=== PATIENT | female | born 1985 | race Caucasian/White ===

== ENCOUNTER 2016-11-30 16:11 | Inpatient (IN) | payer OTHER ==
[~2016-11-30] VITALS: Ht 170.2 cm; Wt 72.8 kg
[~2016-11-30 16:11] MED LIST: FOLIC ACID1 MG PO; Motrin PO; SEROQUEL12.5 MG PO; SEROQUEL300 MG PO; VITAMIN B-1100 MG PO
[2016-11-30 16:48] LABS: HEMATOCRIT 38.4 % (36.0-46.0); MCH 32.8 PG (29.0-34.0); MCHC 32.8 G/DL (30.0-36.0); PLATELET COUNT 221 K/uL (156-360); RBC DIS.WIDTH-CV 17.9 % (11.8-14.6); RBC DIS.WIDTH-SD 63.6 % (39-53); RED BLOOD COUNT 3.84 M/uL (3.80-5.20); WHITE BLOOD COUNT 5.3 K/uL (4.1-10.2)
[2016-11-30 17:04] LABS: CHLORIDE 104 mEq/L (99-109); POTASSIUM 3.9 mEq/L (3.7-5.4); SODIUM 141 mEq/L (136-147)
[2016-11-30 17:06] LABS: GLUCOSE 90 mg/dL (70-99)
[2016-11-30 17:07] LABS: ANION GAP 17 MEQ/L (2-14)
[2016-11-30 17:10] LABS: GFR ESTIMATE (CALCULATED) > 59 mL/min/
[2016-11-30 17:11] LABS: UREA NITROGEN (BUN) 10 mg/dL (9-23)
[2016-11-30 17:19] LABS: QUANTITATIVE HCG < 4.0 MIU/ML
[2016-11-30 19:13] LABS: TOTAL BILIRUBIN 0.4 mg/dL (0.0-1.0)
[2016-11-30 19:14] LABS: ALKALINE PHOSPHATASE 177 IU/L (3-129)
[2016-11-30 19:17] LABS: DIRECT BILIRUBIN 0.2 mg/dL (0.0-0.3)
[2016-11-30 19:18] LABS: LIPASE 13 U/L (1.0-51.0)
[2016-11-30 20:21] LABS: INTER. NORMALIZED RATIO 1.1; PTT 27.1 (25-32)
[2016-11-30] MEDS ORDERED: SEROQUEL50 MG PO (22:31)
[2016-11-30] MEDS ORDERED: IRON325 M1 PO (22:32)
[2016-11-30] MEDS ORDERED: MOTRIN800 MG PO (22:32)
[2016-11-30] MEDS ORDERED: PAXIL20 MG PO (22:32)
[2016-11-30] MEDS ORDERED: NICODERM CQ1 EACH TD (22:32)
[2016-11-30] MEDS ORDERED: PROTONIX40 MG PO (22:32)
[2016-11-30 22:46] LABS: HEMATOCRIT 34.3 % (36.0-46.0); MCH 33.1 PG (29.0-34.0); MCHC 32.9 G/DL (30.0-36.0); MCV 100.6 FL (83-99); MEAN PLAT.VOLUME 8.4 uM^3 (9.5-12.4); PLATELET COUNT 201 K/uL (156-360); RBC DIS.WIDTH-SD 63.1 % (39-53); RED BLOOD COUNT 3.41 M/uL (3.80-5.20); WHITE BLOOD COUNT 4.2 K/uL (4.1-10.2)
[2016-12-01 00:05] LABS: ADD MIUA? NO; BILIRUBIN NEGATIVE; BLOOD NEGATIVE; COLOR YELLOW ((YELLOW)); GLUCOSE (STRIP) NEGATIVE; KETONES 5; LEUKOCYTES NEGATIVE; NITRITE NEGATIVE; PROTEIN (STRIP) NEGATIVE; SPECIFIC GRAVITY 1.038 (1.000-1.030); UROBILINOGEN 0.2 MG/DL (0.2-1.0)
[2016-12-01 01:28] VITALS: BP 109/67
[2016-12-01 02:42] LABS: HEMATOCRIT 30.5 % (36.0-46.0); MCV 100.3 FL (83-99)
[2016-12-01 04:11] VITALS: BP 103/64
[2016-12-01 08:27] VITALS: BP 123/83
[2016-12-01 10:25] LABS: POC NON-PRINT COM 1 ND
[2016-12-01 10:26] LABS: POC NON-PRINT COM 1 ND
[2016-12-01 10:44] LABS: HEMATOCRIT 33.7 % (36.0-46.0)
[2016-12-01 11:45] VITALS: BP 127/89
[2016-12-01 14:58] VITALS: BP 154/90
[2016-12-01 19:22] LABS: HEMATOCRIT 32.7 % (36.0-46.0); MCV 99.1 FL (83-99)
[2016-12-01 20:18] VITALS: BP 147/96
[2016-12-02] VITALS: BP 119/81
[2016-12-02 07:12] LABS: HEMATOCRIT 33.3 % (36.0-46.0); MCH 33.1 PG (29.0-34.0); MCHC 33.3 G/DL (30.0-36.0); MCV 99.4 FL (83-99); PLATELET COUNT 147 K/uL (156-360); RBC DIS.WIDTH-CV 16.9 % (11.8-14.6); RBC DIS.WIDTH-SD 61.3 % (39-53); RED BLOOD COUNT 3.35 M/uL (3.80-5.20); WHITE BLOOD COUNT 3.1 K/uL (4.1-10.2)
[2016-12-02 07:29] VITALS: BP 154/67
[2016-12-02 07:38] LABS: ANION GAP 9 MEQ/L (2-14); CHLORIDE 102 MEQ/L (99-109); GFR ESTIMATE (CALCULATED) > 59 mL/min/; GLUCOSE 100 mg/dL (70-99); POTASSIUM 3.3 MEQ/L (3.7-5.4); SAMPLE HEMOLYSIS CHECK 0; SAMPLE ICTERIC CHECK 0; SAMPLE LIPEMIA CHECK 0; SODIUM 136 MEQ/L (136-147); UREA NITROGEN (BUN) 4 mg/dL (9-23)
[2016-12-02 10:57] VITALS: BP 121/86
[2016-12-02 14:56] VITALS: BP 131/84
[2016-12-02 19:34] VITALS: BP 161/83
[2016-12-03] VITALS (7 sets, daily range): BP systolic 106–141; BP diastolic 76–100
[2016-12-03 06:54] LABS: HEMATOCRIT 35.4 % (36.0-46.0); MCH 32.8 PG (29.0-34.0); MCHC 32.2 G/DL (30.0-36.0); MCV 101.7 FL (83-99); PLATELET COUNT 150 K/uL (156-360); RBC DIS.WIDTH-CV 16.7 % (11.8-14.6); RBC DIS.WIDTH-SD 62.7 % (39-53); RED BLOOD COUNT 3.48 M/uL (3.80-5.20); WHITE BLOOD COUNT 3.4 K/uL (4.1-10.2)
[2016-12-03 07:24] LABS: ANION GAP 9 MEQ/L (2-14); CHLORIDE 105 MEQ/L (99-109); GFR ESTIMATE (CALCULATED) > 59 mL/min/; GLUCOSE 99 mg/dL (70-99); POTASSIUM 3.6 MEQ/L (3.7-5.4); SAMPLE HEMOLYSIS CHECK 0; SAMPLE ICTERIC CHECK 0; SAMPLE LIPEMIA CHECK 0; SODIUM 138 MEQ/L (136-147); UREA NITROGEN (BUN) 4 mg/dL (9-23)
[2016-12-04 03:47] VITALS: BP 121/76
[2016-12-04 06:31] LABS: HEMATOCRIT 34.1 % (36.0-46.0); MCH 32.1 PG (29.0-34.0); MCHC 31.4 G/DL (30.0-36.0); MCV 102.4 FL (83-99); MEAN PLAT.VOLUME 10.3 uM^3 (9.5-12.4); PLATELET COUNT 153 K/uL (156-360); RBC DIS.WIDTH-CV 16.9 % (11.8-14.6); RBC DIS.WIDTH-SD 63.7 % (39-53); RED BLOOD COUNT 3.33 M/uL (3.80-5.20); WHITE BLOOD COUNT 3.9 K/uL (4.1-10.2)
[2016-12-04 06:53] LABS: ALKALINE PHOSPHATASE 144 IU/L (3-129); ANION GAP 10 MEQ/L (2-14); CHLORIDE 104 MEQ/L (99-109); DIRECT BILIRUBIN 0.1 mg/dL (0.0-0.3); GFR ESTIMATE (CALCULATED) > 59 mL/min/; GLUCOSE 107 mg/dL (70-99); POTASSIUM 3.7 MEQ/L (3.7-5.4); SAMPLE HEMOLYSIS CHECK 0; SAMPLE ICTERIC CHECK 0; SAMPLE LIPEMIA CHECK 0; SODIUM 138 MEQ/L (136-147); TOTAL BILIRUBIN 0.4 MG/DL (0.0-1.0); UREA NITROGEN (BUN) 4 mg/dL (9-23)
[2016-12-04 07:23] VITALS: BP 104/65
[2016-12-04 11:05] VITALS: BP 109/61
[2016-12-04] MEDS ORDERED: LIBRIUM25 MG PO (11:27)
== END 2016-12-04 13:13 | disposition home or self-care (01) | DRG 897 ==
LOC: EME 16:11 → EDOF 23:23 → 5WEST 23:23 → 5SOUTH 12-01 10:27 → 5WEST 12-01 10:27 → 5SOUTH 12-01 14:30
PROVIDERS: Hospitalist; Nurse Practitioner Adult Health; Nurse Practitioner Family; Physician Assistant; Physician Assistant Medical
DX: F10.230 Alcohol dependence with withdrawal, uncomplicated (principal); K62.5 Hemorrhage of anus and rectum; D61.818 Other pancytopenia; E87.2 Acidosis; K70.9 Alcoholic liver disease, unspecified; R10.13 Epigastric pain; E87.6 Hypokalemia; E86.0 Dehydration; F32.9 Major depressive disorder, single episode, unspecified
CPT/HCPCS: 74177; 80048; 80076; 81003; 82272; 83605; 83690; 84702; 85014; 85018; 85027; 85610; 85730; 86850; 86900; 86901; 99281; 99285; C9113; G0378; J1170; J2060; J2270; J2405; J3360; J3411; J7030; J7050

== ENCOUNTER 2018-01-11 16:50 | Inpatient (IN) | payer OTHER ==
[~2018-01-11] VITALS: Ht 170.2 cm; Wt 58.9 kg
[~2018-01-11 16:50] MED LIST changes: +IRON325 M1 PO; +LIBRIUM25 MG PO; +MOTRIN800 MG PO; +NICODERM CQ1 EACH TD; +PAXIL20 MG PO; +PROTONIX40 MG PO; +SEROQUEL50 MG PO
[2018-01-11 18:10] LABS: HEMATOCRIT 25.1 % (36.0-46.0); HEMOGLOBIN 8.7 G/DL (11.9-15.5); MCHC 34.7 G/DL (30.0-36.0); MCV 106.8 FL (83-99); PLATELET COUNT 52 K/uL (156-360); RBC DIS.WIDTH-CV 14.5 % (11.8-14.6); RBC DIS.WIDTH-SD 55.7 % (39-53); RED BLOOD COUNT 2.35 M/uL (3.80-5.20); WHITE BLOOD COUNT 5.6 K/uL (4.1-10.2)
[2018-01-11 18:24] LABS: APPEARANCE SL.HAZY ((CLEAR)); BILIRUBIN NEGATIVE; BLOOD NEGATIVE; COLOR YELLOW ((YELLOW)); GLUCOSE (STRIP) NEGATIVE; KETONES NEGATIVE; LEUKOCYTES NEGATIVE; NITRITE NEGATIVE; PROTEIN (STRIP) NEGATIVE; SPECIFIC GRAVITY 1.008 (1.000-1.030)
[2018-01-11 18:24] LABS: ALBUMIN 3.9 g/dL (3.2-4.8); CHLORIDE 102 mEq/L (99-109); POTASSIUM 3.3 mEq/L (3.7-5.4); SODIUM 142 mEq/L (136-147)
[2018-01-11 18:26] LABS: GLUCOSE 90 mg/dL (70-99); TOTAL PROTEIN 8.7 g/dL (6.4-8.3)
[2018-01-11 18:28] LABS: TOTAL BILIRUBIN 4.9 mg/dL (0.0-1.0)
[2018-01-11 18:30] LABS: ALKALINE PHOSPHATASE 249 IU/L (3-129); CREATININE 0.7 mg/dL (0.6-1.3); GFR ESTIMATE (CALCULATED) > 59 mL/min/
[2018-01-11 18:31] LABS: UREA NITROGEN (BUN) 5 mg/dL (9-23)
[2018-01-11 18:32] LABS: BACTERIA RARE /HPF; EPITHELIAL CELLS 1+ /HPF; MUCUS NONE SEEN /LPF; RED BLOOD CELLS 0-5 /HPF (0-5); UCUL ADDED? NO; WHITE BLOOD CELLS 0-5 /HPF (0-5)
[2018-01-11 18:32] LABS: AST (GOT) 137 IU/L (2-34)
[2018-01-11 18:33] LABS: ALT (GPT) 28 IU/L (3-49)
[2018-01-11 18:40] LABS: QUANTITATIVE HCG < 4.0 MIU/ML
[2018-01-11 20:44] LABS: LIPASE 2 U/L (1.0-51.0)
[2018-01-11 22:26] LABS: INTER. NORMALIZED RATIO 1.6
[2018-01-11 22:28] LABS: PTT 38.9 SEC (25-37)
[2018-01-11 23:35] LABS: SERUM ETHYL ALCOHOL 233 mg/dL
[2018-01-12] VITALS (12 sets, daily range): BP systolic 91–121; BP diastolic 53–76
[2018-01-12] MEDS ORDERED: VALIUM10 MG PO (00:30)
[2018-01-12 00:51] LABS: AMPHETAMINE NEGATIVE (500 ng/mL); BARBITURATES NEGATIVE (200 ng/mL); BENZODIAZEPINES PRESUMPTIVE POSITIVE (150 ng/mL); BUPRENORPHINE NEGATIVE (10 ng/mL); COCAINE PRESUMPTIVE POSITIVE (150 ng/mL); METHADONE NEGATIVE (200 ng/mL); METHAMPHETAMINE NEGATIVE (500 ng/mL); OPIATES (MORPHINE) NEGATIVE (100 ng/mL); OXYCODONE PRESUMPTIVE POSITIVE (100 ng/mL); PHENCYCLIDINE NEGATIVE (25 ng/mL); PROPOXYPHENE NEGATIVE (300 ng/mL); THC CANNABINOIDS NEGATIVE (50 ng/mL); TRICYCLIC ANTIDEPRESSANTS NEGATIVE (300 ng/mL)
[2018-01-12 01:11] LABS: MAGNESIUM 1.5 mg/dL (1.3-2.7)
[2018-01-12 01:17] LABS: GAMMA-GT 277 IU/L (4-73)
[2018-01-12 01:19] LABS: ACETAMINOPHEN (TYLENOL) < 10 mcg/mL (10-30); SALICYLATE < 5.0 MG/DL (15-30)
[2018-01-12 01:36] LABS: BENZODIAZEPINES, URINE SCREEN POSITIVE (200 ng/mL)
[2018-01-12 02:20] LABS: IRON 118 MCG/DL (35-150); TRANSFERRIN (TIBC) 153.8 mg/dL (215-380); TRANSFERRIN SATUR. 77 % (20-55)
[2018-01-12 05:54] LABS: HEMATOCRIT 21.1 % (36.0-46.0); IMM.PLATELET FRACTION 2.6 (1-7); MCH 36.1 PG (29.0-34.0); MCHC 32.7 G/DL (30.0-36.0); MCV 110.5 FL (83-99); PLATELET COUNT 41 K/uL (156-360); RBC DIS.WIDTH-CV 14.7 % (11.8-14.6); RBC DIS.WIDTH-SD 58.7 % (39-53); RED BLOOD COUNT 1.91 M/uL (3.80-5.20); WHITE BLOOD COUNT 3.8 K/uL (4.1-10.2)
[2018-01-12 05:58] LABS: TROP-I INTERPRETATION NEGATIVE; TROPONIN-I < 0.01 ng/mL (0.0-0.30)
[2018-01-12 06:18] LABS: HEMOGLOBIN 6.9 G/DL (11.9-15.5)
[2018-01-12 07:12] LABS: PLAT.SUFFICIENCY VERY DECREASED
[2018-01-12 07:40] LABS: MCH 35.8 PG (29.0-34.0); MCHC 32.4 G/DL (30.0-36.0); MCV 110.5 FL (83-99); RBC DIS.WIDTH-CV 14.8 % (11.8-14.6); RBC DIS.WIDTH-SD 58.7 % (39-53); WHITE BLOOD COUNT 3.2 K/uL (4.1-10.2)
[2018-01-12 07:51] LABS: HEMOGLOBIN 6.8 G/DL (11.9-15.5)
[2018-01-12 08:04] LABS: IMM.PLATELET FRACTION 2.7 (1-7); PLAT.SUFFICIENCY DECREASED; PLATELET COUNT 41 K/uL (156-360)
[2018-01-12 08:09] LABS: FERRITIN 168 NG/ML (10-291)
[2018-01-12 08:16] LABS: FOLIC ACID (FOLATE) 5.2 NG/ML (5.0-22.0)
[2018-01-12 08:20] LABS: QUANTITATIVE HCG < 4.0 MIU/ML
[2018-01-12 09:24] LABS: ALBUMIN 2.7 G/DL (3.2-4.8); ALKALINE PHOSPHATASE 176 IU/L (3-129); ALT (GPT) 17 IU/L (3-49); AST (GOT) 87 IU/L (2-34); CHLORIDE 107 MEQ/L (99-109); CREATININE 0.5 MG/DL (0.6-1.3); GFR ESTIMATE (CALCULATED) > 59 mL/min/; GLUCOSE 78 mg/dL (70-99); POTASSIUM 3.5 MEQ/L (3.7-5.4); SODIUM 142 MEQ/L (136-147); TOTAL BILIRUBIN 3.5 MG/DL (0.0-1.0); TOTAL PROTEIN 6.5 G/DL (6.4-8.3); UREA NITROGEN (BUN) 6 mg/dL (9-23)
[2018-01-12 11:43] LABS: HEMATOCRIT 24.5 % (36.0-46.0); HEMOGLOBIN 8.2 G/DL (11.9-15.5); MCH 35.8 PG (29.0-34.0); MCHC 33.5 G/DL (30.0-36.0); RBC DIS.WIDTH-CV 17.5 % (11.8-14.6); RBC DIS.WIDTH-SD 68.9 % (39-53); WHITE BLOOD COUNT 2.8 K/uL (4.1-10.2)
[2018-01-12 12:01] LABS: RED BLOOD COUNT 2.29 M/uL (3.80-5.20)
[2018-01-12 12:10] LABS: TROP-I INTERPRETATION NEGATIVE; TROPONIN-I < 0.01 ng/mL (0.0-0.30)
[2018-01-12 12:13] LABS: IMM.PLATELET FRACTION 2.7 (1-7); PLAT.SUFFICIENCY VERY DECREASED; PLATELET COUNT 35 K/uL (156-360)
[2018-01-12 16:47] LABS: HEMATOCRIT 27.3 % (36.0-46.0); HEMOGLOBIN 9.1 G/DL (11.9-15.5); MCV 102.2 FL (83-99)
[2018-01-12 18:39] LABS: MCH 34.5 PG (29.0-34.0); MCHC 33.5 G/DL (30.0-36.0); RBC DIS.WIDTH-CV 19.9 % (11.8-14.6); RBC DIS.WIDTH-SD 74.4 % (39-53); RED BLOOD COUNT 2.64 M/uL (3.80-5.20); WHITE BLOOD COUNT 2.6 K/uL (4.1-10.2)
[2018-01-12 19:34] LABS: PLAT.SUFFICIENCY VERY DECREASED
[2018-01-12 19:35] LABS: IMM.PLATELET FRACTION 3.7 (1-7); PLATELET COUNT 33 K/uL (156-360)
[2018-01-12 23:07] LABS: HEMATOCRIT 25.4 % (36.0-46.0); HEMOGLOBIN 8.8 G/DL (11.9-15.5); MCV 100.4 FL (83-99)
[2018-01-13] VITALS (9 sets, daily range): BP systolic 98–132; BP diastolic 54–78
[2018-01-13 01:46] LABS: MCH 35.3 PG (29.0-34.0); MCHC 34.1 G/DL (30.0-36.0); RBC DIS.WIDTH-CV 19.9 % (11.8-14.6); RBC DIS.WIDTH-SD 73.1 % (39-53); RED BLOOD COUNT 2.41 M/uL (3.80-5.20); WHITE BLOOD COUNT 2.6 K/uL (4.1-10.2)
[2018-01-13 02:29] LABS: IMM.PLATELET FRACTION 3.7 (1-7); PLAT.SUFFICIENCY VERY DECREASED
[2018-01-13 03:49] LABS: PLATELET COUNT 29 K/uL (156-360)
[2018-01-13 06:00] LABS: BASOPHIL (%) 0.7 % (0-1); EOSINOPHIL (%) 0.7 % (0-5); HEMATOCRIT 25.5 % (36.0-46.0); HEMOGLOBIN 8.5 G/DL (11.9-15.5); IMMATURE GRANULOCYTE (%) 0.4 % (0.0-0.7); LYMPHOCYTE (%) 49.6 % (15-42); LYMPHOCYTE COUNT 1.3 K/uL (1.0-2.8); MCH 33.9 PG (29.0-34.0); MCHC 33.3 G/DL (30.0-36.0); MCV 101.6 FL (83-99); MONOCYTE (%) 7.1 % (3-12); MONOCYTE COUNT 0.2 K/uL (0-0.8); NEUTROPHIL (%) 41.5 % (45-76); NEUTROPHIL COUNT 1.1 K/uL (1.8-6.4); RBC DIS.WIDTH-SD 72.5 % (39-53); RED BLOOD COUNT 2.51 M/uL (3.80-5.20); WHITE BLOOD COUNT 2.7 K/uL (4.1-10.2)
[2018-01-13 06:50] LABS: IMM.PLATELET FRACTION 3.3 (1-7); PLAT.SUFFICIENCY VERY DECREASED
[2018-01-13 06:58] LABS: PLATELET COUNT 29 K/uL (156-360)
[2018-01-13 07:07] LABS: CHLORIDE 110 MEQ/L (99-109); CREATININE 0.5 MG/DL (0.6-1.3); GFR ESTIMATE (CALCULATED) > 59 mL/min/; GLUCOSE 76 mg/dL (70-99); POTASSIUM 3.4 MEQ/L (3.7-5.4); SODIUM 139 MEQ/L (136-147); UREA NITROGEN (BUN) 5 mg/dL (9-23)
[2018-01-13 12:08] LABS: HEMATOCRIT 24.7 % (36.0-46.0); HEMOGLOBIN 8.4 G/DL (11.9-15.5); MCH 34.9 PG (29.0-34.0); MCV 102.5 FL (83-99); RBC DIS.WIDTH-CV 19.9 % (11.8-14.6); RBC DIS.WIDTH-SD 73.8 % (39-53); RED BLOOD COUNT 2.41 M/uL (3.80-5.20); WHITE BLOOD COUNT 2.4 K/uL (4.1-10.2)
[2018-01-13 12:49] LABS: PLAT.SUFFICIENCY VERY DECREASED
[2018-01-13 12:50] LABS: IMM.PLATELET FRACTION 3.6 (1-7); PLATELET COUNT 25 K/uL (156-360)
[2018-01-13 17:43] LABS: HEMATOCRIT 25.2 % (36.0-46.0); HEMOGLOBIN 8.4 G/DL (11.9-15.5); MCH 33.9 PG (29.0-34.0); MCHC 33.3 G/DL (30.0-36.0); MCV 101.6 FL (83-99); RBC DIS.WIDTH-CV 19.7 % (11.8-14.6); RBC DIS.WIDTH-SD 71.5 % (39-53); RED BLOOD COUNT 2.48 M/uL (3.80-5.20); WHITE BLOOD COUNT 2.9 K/uL (4.1-10.2)
[2018-01-13 18:16] LABS: IMM.PLATELET FRACTION 2.2 (1-7); PLAT.SUFFICIENCY VERY DECREASED
[2018-01-13 18:22] LABS: PLATELET COUNT 39 K/uL (156-360)
[2018-01-13 23:49] LABS: HEMATOCRIT 23.8 % (36.0-46.0); HEMOGLOBIN 8.3 G/DL (11.9-15.5); MCV 100.8 FL (83-99)
[2018-01-14 00:18] LABS: MCHC 34.6 G/DL (30.0-36.0); RBC DIS.WIDTH-CV 19.3 % (11.8-14.6); RBC DIS.WIDTH-SD 70.4 % (39-53); RED BLOOD COUNT 2.34 M/uL (3.80-5.20); WHITE BLOOD COUNT 3.1 K/uL (4.1-10.2)
[2018-01-14 02:32] LABS: IMM.PLATELET FRACTION 2.8 (1-7); PLAT.SUFFICIENCY VERY DECREASED; PLATELET COUNT 44 K/uL (156-360)
[2018-01-14 04:00] VITALS: BP 99/58
[2018-01-14 06:12] LABS: BASOPHIL (%) 0.3 % (0-1); HEMATOCRIT 23.8 % (36.0-46.0); HEMOGLOBIN 8.2 G/DL (11.9-15.5); LYMPHOCYTE COUNT 1.5 K/uL (1.0-2.8); MCH 35.2 PG (29.0-34.0); MCHC 34.5 G/DL (30.0-36.0); MCV 102.1 FL (83-99); MONOCYTE (%) 6.9 % (3-12); MONOCYTE COUNT 0.2 K/uL (0-0.8); NEUTROPHIL (%) 42.8 % (45-76); NEUTROPHIL COUNT 1.3 K/uL (1.8-6.4); RBC DIS.WIDTH-CV 19.2 % (11.8-14.6); RBC DIS.WIDTH-SD 71.2 % (39-53); RED BLOOD COUNT 2.33 M/uL (3.80-5.20)
[2018-01-14 06:57] LABS: IMM.PLATELET FRACTION 3.6 (1-7); PLAT.SUFFICIENCY DECREASED; PLATELET COUNT 40 K/uL (156-360)
[2018-01-14 07:38] VITALS: BP 96/55
[2018-01-14 08:30] LABS: ALBUMIN 2.6 g/dL (3.2-4.8)
[2018-01-14 08:31] LABS: CHLORIDE 111 mEq/L (99-109); POTASSIUM 3.1 mEq/L (3.7-5.4); SODIUM 139 mEq/L (136-147)
[2018-01-14 08:33] LABS: GLUCOSE 92 mg/dL (70-99)
[2018-01-14 08:34] LABS: TOTAL PROTEIN 5.8 g/dL (6.4-8.3)
[2018-01-14 08:36] LABS: TOTAL BILIRUBIN 6.5 mg/dL (0.0-1.0)
[2018-01-14 08:37] LABS: CREATININE 0.6 mg/dL (0.6-1.3); GFR ESTIMATE (CALCULATED) > 59 mL/min/
[2018-01-14 08:38] LABS: ALKALINE PHOSPHATASE 161 IU/L (3-129); UREA NITROGEN (BUN) 3 mg/dL (9-23)
[2018-01-14 08:39] LABS: ALT (GPT) 12 IU/L (3-49); AST (GOT) 54 IU/L (2-34)
[2018-01-14 13:41] LABS: HEMATOCRIT 24.2 % (36.0-46.0); HEMOGLOBIN 8.3 G/DL (11.9-15.5); MCH 35.3 PG (29.0-34.0); MCHC 34.3 G/DL (30.0-36.0); RBC DIS.WIDTH-CV 19.2 % (11.8-14.6); RBC DIS.WIDTH-SD 71.9 % (39-53); RED BLOOD COUNT 2.35 M/uL (3.80-5.20); WHITE BLOOD COUNT 2.9 K/uL (4.1-10.2)
[2018-01-14 14:37] LABS: IMM.PLATELET FRACTION 2.2 (1-7); PLAT.SUFFICIENCY DECREASED; PLATELET COUNT 40 K/uL (156-360)
[2018-01-14 14:52] VITALS: BP 92/50
[2018-01-14 18:01] LABS: HEMATOCRIT 26.7 % (36.0-46.0); MCH 34.7 PG (29.0-34.0); MCHC 33.7 G/DL (30.0-36.0); MCV 103.1 FL (83-99); RBC DIS.WIDTH-CV 19.2 % (11.8-14.6); RBC DIS.WIDTH-SD 71.9 % (39-53); RED BLOOD COUNT 2.59 M/uL (3.80-5.20); WHITE BLOOD COUNT 3.1 K/uL (4.1-10.2)
[2018-01-14 18:29] LABS: IMM.PLATELET FRACTION 2.8 (1-7); PLAT.SUFFICIENCY VERY DECREASED; PLATELET COUNT 44 K/uL (156-360)
[2018-01-14 19:49] VITALS: BP 111/74
[2018-01-14 23:55] VITALS: BP 104/64
[2018-01-15] VITALS (7 sets, daily range): BP systolic 91–104; BP diastolic 50–69
[2018-01-15 00:33] LABS: HEMATOCRIT 23.3 % (36.0-46.0); MCH 35.1 PG (29.0-34.0); MCHC 34.3 G/DL (30.0-36.0); MCV 102.2 FL (83-99); RBC DIS.WIDTH-CV 18.6 % (11.8-14.6); RBC DIS.WIDTH-SD 69.8 % (39-53); RED BLOOD COUNT 2.28 M/uL (3.80-5.20); WHITE BLOOD COUNT 3.4 K/uL (4.1-10.2)
[2018-01-15 02:38] LABS: IMM.PLATELET FRACTION 3.6 (1-7); PLAT.SUFFICIENCY VERY DECREASED; PLATELET COUNT 39 K/uL (156-360)
[2018-01-15 05:26] LABS: BASOPHIL (%) 0.3 % (0-1); EOSINOPHIL (%) 1.8 % (0-5); EOSINOPHIL COUNT 0.1 K/uL (0-0.3); HEMATOCRIT 23.2 % (36.0-46.0); HEMOGLOBIN 7.8 G/DL (11.9-15.5); IMMATURE GRANULOCYTE (%) 0.6 % (0.0-0.7); LYMPHOCYTE (%) 40.8 % (15-42); LYMPHOCYTE COUNT 1.4 K/uL (1.0-2.8); MCH 34.7 PG (29.0-34.0); MCHC 33.6 G/DL (30.0-36.0); MCV 103.1 FL (83-99); MONOCYTE (%) 8.1 % (3-12); MONOCYTE COUNT 0.3 K/uL (0-0.8); NEUTROPHIL (%) 48.4 % (45-76); NEUTROPHIL COUNT 1.6 K/uL (1.8-6.4); RBC DIS.WIDTH-CV 18.6 % (11.8-14.6); RED BLOOD COUNT 2.25 M/uL (3.80-5.20); WHITE BLOOD COUNT 3.3 K/uL (4.1-10.2)
[2018-01-15 05:54] LABS: ALBUMIN 2.6 G/DL (3.2-4.8); ALT (GPT) 10 IU/L (3-49); CHLORIDE 107 MEQ/L (99-109); CREATININE 0.4 MG/DL (0.6-1.3); GFR ESTIMATE (CALCULATED) > 59 mL/min/; GLUCOSE 94 mg/dL (70-99); POTASSIUM 3.4 MEQ/L (3.7-5.4); SODIUM 135 MEQ/L (136-147); UREA NITROGEN (BUN) 3 mg/dL (9-23)
[2018-01-15 06:16] LABS: ALKALINE PHOSPHATASE 124 IU/L (3-129); AST (GOT) 40 IU/L (2-34); TOTAL BILIRUBIN 6.4 MG/DL (0.0-1.0); TOTAL PROTEIN 5.4 G/DL (6.4-8.3)
[2018-01-15 07:16] LABS: IMM.PLATELET FRACTION 2.8 (1-7); PLAT.SUFFICIENCY VERY DECREASED; PLATELET COUNT 36 K/uL (156-360)
[2018-01-15 14:44] LABS: HEMATOCRIT 24.4 % (36.0-46.0); HEMOGLOBIN 8.1 G/DL (11.9-15.5); MCV 103.4 FL (83-99)
[2018-01-16] VITALS (7 sets, daily range): BP systolic 83–114; BP diastolic 44–87
[2018-01-16 04:52] LABS: BASOPHIL (%) 0.3 % (0-1); EOSINOPHIL (%) 1.4 % (0-5); HEMATOCRIT 23.9 % (36.0-46.0); HEMOGLOBIN 8.2 G/DL (11.9-15.5); IMMATURE GRANULOCYTE (%) 0.3 % (0.0-0.7); LYMPHOCYTE (%) 45.7 % (15-42); LYMPHOCYTE COUNT 1.3 K/uL (1.0-2.8); MCH 35.2 PG (29.0-34.0); MCHC 34.3 G/DL (30.0-36.0); MCV 102.6 FL (83-99); MONOCYTE (%) 7.9 % (3-12); MONOCYTE COUNT 0.2 K/uL (0-0.8); NEUTROPHIL (%) 44.4 % (45-76); NEUTROPHIL COUNT 1.3 K/uL (1.8-6.4); RBC DIS.WIDTH-CV 18.2 % (11.8-14.6); RBC DIS.WIDTH-SD 68.9 % (39-53); RED BLOOD COUNT 2.33 M/uL (3.80-5.20); WHITE BLOOD COUNT 2.9 K/uL (4.1-10.2)
[2018-01-16 05:17] LABS: ALBUMIN 2.6 g/dL (3.2-4.8); CHLORIDE 111 mEq/L (99-109); POTASSIUM 3.4 mEq/L (3.7-5.4); SODIUM 137 mEq/L (136-147)
[2018-01-16 05:20] LABS: GLUCOSE 94 mg/dL (70-99); TOTAL PROTEIN 5.8 g/dL (6.4-8.3)
[2018-01-16 05:23] LABS: ALKALINE PHOSPHATASE 171 IU/L (3-129); CREATININE 0.5 mg/dL (0.6-1.3); GFR ESTIMATE (CALCULATED) > 59 mL/min/
[2018-01-16 05:24] LABS: UREA NITROGEN (BUN) 3 mg/dL (9-23)
[2018-01-16 05:25] LABS: AST (GOT) 41 IU/L (2-34)
[2018-01-16 05:26] LABS: ALT (GPT) 12 IU/L (3-49)
[2018-01-16 05:31] LABS: TOTAL BILIRUBIN 4.9 mg/dL (0.0-1.0)
[2018-01-16 05:40] LABS: IMM.PLATELET FRACTION 4.2 (1-7); PLAT.SUFFICIENCY VERY DECREASED; PLATELET COUNT 42 K/uL (156-360)
[2018-01-16 10:33] LABS: HEPATITIS B SURFACE ANTIGEN Nonreactive
[2018-01-16 10:34] LABS: ANTI-HEPATITIS A VIRUS (IGM) Nonreactive
[2018-01-16 10:35] LABS: ANTI-HEPATITIS B CORE (IGM) Nonreactive
[2018-01-16 10:42] LABS: HEPATITIS C ANTIBODY REACTIVE
[2018-01-17 04:12] VITALS: BP 98/54
[2018-01-17 05:14] LABS: BASOPHIL (%) 0.4 % (0-1); EOSINOPHIL (%) 1.1 % (0-5); HEMATOCRIT 23.9 % (36.0-46.0); HEMOGLOBIN 7.9 G/DL (11.9-15.5); IMMATURE GRANULOCYTE (%) 0.4 % (0.0-0.7); LYMPHOCYTE (%) 48.4 % (15-42); LYMPHOCYTE COUNT 1.4 K/uL (1.0-2.8); MCH 34.2 PG (29.0-34.0); MCHC 33.1 G/DL (30.0-36.0); MCV 103.5 FL (83-99); MONOCYTE (%) 9.5 % (3-12); MONOCYTE COUNT 0.3 K/uL (0-0.8); NEUTROPHIL (%) 40.2 % (45-76); NEUTROPHIL COUNT 1.1 K/uL (1.8-6.4); RBC DIS.WIDTH-CV 18.3 % (11.8-14.6); RBC DIS.WIDTH-SD 68.7 % (39-53); RED BLOOD COUNT 2.31 M/uL (3.80-5.20); WHITE BLOOD COUNT 2.8 K/uL (4.1-10.2)
[2018-01-17 06:01] LABS: PLAT.SUFFICIENCY VERY DECREASED
[2018-01-17 06:09] LABS: IMM.PLATELET FRACTION 3.4 (1-7); PLATELET COUNT 46 K/uL (156-360)
[2018-01-17 07:08] LABS: CHLORIDE 104 MEQ/L (99-109); CREATININE 0.4 MG/DL (0.6-1.3); GFR ESTIMATE (CALCULATED) > 59 mL/min/; GLUCOSE 90 mg/dL (70-99); POTASSIUM 3.2 MEQ/L (3.7-5.4); SODIUM 134 MEQ/L (136-147); UREA NITROGEN (BUN) 3 mg/dL (9-23)
[2018-01-17 07:45] VITALS: BP 90/45
[2018-01-17 12:11] VITALS: BP 85/46
[2018-01-17 15:17] VITALS: BP 90/52
[2018-01-18] VITALS: BP 106/71
[2018-01-18 05:47] LABS: BASOPHIL (%) 0.7 % (0-1); EOSINOPHIL (%) 1.3 % (0-5); HEMATOCRIT 24.2 % (36.0-46.0); HEMOGLOBIN 8.1 G/DL (11.9-15.5); IMMATURE GRANULOCYTE (%) 0.3 % (0.0-0.7); LYMPHOCYTE (%) 48.3 % (15-42); LYMPHOCYTE COUNT 1.5 K/uL (1.0-2.8); MCH 35.1 PG (29.0-34.0); MCHC 33.5 G/DL (30.0-36.0); MCV 104.8 FL (83-99); MONOCYTE (%) 10.9 % (3-12); MONOCYTE COUNT 0.3 K/uL (0-0.8); NEUTROPHIL (%) 38.5 % (45-76); NEUTROPHIL COUNT 1.2 K/uL (1.8-6.4); RBC DIS.WIDTH-CV 18.1 % (11.8-14.6); RED BLOOD COUNT 2.31 M/uL (3.80-5.20)
[2018-01-18 06:34] LABS: ALBUMIN 2.6 G/DL (3.2-4.8); ALKALINE PHOSPHATASE 121 IU/L (3-129); ALT (GPT) 13 IU/L (3-49); AST (GOT) 39 IU/L (2-34); CHLORIDE 105 MEQ/L (99-109); CREATININE 0.4 MG/DL (0.6-1.3); DIRECT BILIRUBIN 1.7 mg/dL (0.0-0.3); GFR ESTIMATE (CALCULATED) > 59 mL/min/; GLUCOSE 98 mg/dL (70-99); POTASSIUM 3.5 MEQ/L (3.7-5.4); SODIUM 137 MEQ/L (136-147); TOTAL PROTEIN 5.4 G/DL (6.4-8.3); UREA NITROGEN (BUN) 3 mg/dL (9-23)
[2018-01-18 06:38] LABS: TOTAL BILIRUBIN 3.7 MG/DL (0.0-1.0)
[2018-01-18 06:46] LABS: IMM.PLATELET FRACTION 3.5 (1-7); PLAT.SUFFICIENCY DECREASED; PLATELET COUNT 47 K/uL (156-360)
[2018-01-18 08:09] VITALS: BP 95/52
[2018-01-18] MEDS ORDERED: VALACYCLOVIR500 MG PO (13:00)
[2018-01-18] MEDS ORDERED: NICOTINE PATCH1 EAC1 TD (13:25)
[2018-01-18] MEDS ORDERED: QUETIAPINE FUMA50 MG PO (13:26)
[2018-01-18] MEDS ORDERED: PANTOPRAZOLE SO40 MG PO (13:26)
[2018-01-18] MEDS ORDERED: THERAGRAN1 TABLET PO (13:27)
[2018-01-18] MEDS ORDERED: FOLIC ACID1 MG PO (13:27)
[2018-01-18] MEDS ORDERED: VITAMIN B-1100 MG PO (13:27)
== END 2018-01-18 16:32 | disposition home or self-care (01) | DRG 433 ==
LOC: EME 16:50 → EDOF 01-12 00:32 → 4EAST 01-12 00:32 → ENRESERV 01-12 00:36 → 4EAST 01-12 02:43 → ENRESERV 01-13 13:48 → CANRESERV 01-13 13:48 → ENRESERV 01-14 07:23 → CANRESERV 01-14 08:32 → 4EAST 01-14 12:40 → ENRESERV 01-17 → 5EAST 01-17 11:00 → ENRESERV 01-17 11:02 → 5EAST 01-17 20:35 → ENPENDDIS 01-18 → 5EAST 01-18 16:32
PROVIDERS: Internal Medicine; Physician Assistant; Student in an Organized Health Care Education/Training Program
DX: K70.10 Alcoholic hepatitis without ascites (principal); D61.818 Other pancytopenia; K29.70 Gastritis, unspecified, without bleeding; D69.59 Other secondary thrombocytopenia; F10.239 Alcohol dependence with withdrawal, unspecified; B18.2 Chronic viral hepatitis C; K74.60 Unspecified cirrhosis of liver; F11.10 Opioid abuse, uncomplicated; D64.9 Anemia, unspecified; I95.9 Hypotension, unspecified; E46 Unspecified protein-calorie malnutrition; Y90.7 Blood alcohol level of 200-239 mg/100 ml; K80.20 Calculus of gallbladder without cholecystitis without obstruction; F14.10 Cocaine abuse, uncomplicated; E87.2 Acidosis; B08.4 Enteroviral vesicular stomatitis with exanthem; E87.6 Hypokalemia; D68.9 Coagulation defect, unspecified; K21.9 Gastro-esophageal reflux disease without esophagitis; E86.0 Dehydration; K76.0 Fatty (change of) liver, not elsewhere classified; F17.200 Nicotine dependence, unspecified, uncomplicated; F41.9 Anxiety disorder, unspecified; K82.8 Other specified diseases of gallbladder; Z68.1 Body mass index [BMI] 19.9 or less, adult; F32.9 Major depressive disorder, single episode, unspecified; G43.909 Migraine, unspecified, not intractable, without status migrainosus; Z86.73 Personal history of transient ischemic attack (TIA), and cerebral infarction without residual deficits; Z85.41 Personal history of malignant neoplasm of cervix uteri
CPT/HCPCS: 74177; 76705; 80048; 80053; 80074; 80076; 81003; 82272; 82533 91; 82607; 82728; 82746; 82977; 83540; 83605; 83690; 83735; 84425 90; 84466; 84484; 84702; 84999; 85014; 85018; 85025; 85027; 85610; 85730; 86658 90; 86850; 86900; 86901; 86920; 87040; 94760; 94799; 99281; 99285; C9113; G0480; J1885; J2060; J2405; J2543; J2765; J3010; J7030; J7040; J7050; J7120; P9016; P9035; P9040

== ENCOUNTER 2018-05-19 22:09 | Inpatient (IN) | payer OTHER ==
[~2018-05-19] VITALS: Ht 170.2 cm; Wt 61.3 kg
[~2018-05-19 22:09] MED LIST changes: +NICOTINE PATCH1 EAC1 TD; +PANTOPRAZOLE SO40 MG PO; +QUETIAPINE FUMA50 MG PO; +THERAGRAN1 TABLET PO; +VALACYCLOVIR500 MG PO; +VALIUM10 MG PO
[2018-05-19 23:02] LABS: ALBUMIN 2.3 g/dL (3.2-4.8); CHLORIDE 108 mEq/L (99-109); POTASSIUM 3.4 mEq/L (3.7-5.4); SODIUM 136 mEq/L (136-147)
[2018-05-19 23:04] LABS: GLUCOSE 205 mg/dL (70-99); HEMATOCRIT 26.4 % (36.0-46.0); HEMOGLOBIN 8.7 G/DL (11.9-15.5); MCH 33.2 PG (29.0-34.0); MCV 100.8 FL (83-99); PLATELET COUNT 114 K/uL (156-360); RBC DIS.WIDTH-CV 23.2 % (11.8-14.6); RBC DIS.WIDTH-SD 81.9 % (39-53); RED BLOOD COUNT 2.62 M/uL (3.80-5.20); TOTAL PROTEIN 6.6 g/dL (6.4-8.3); WHITE BLOOD COUNT 8.5 K/uL (4.1-10.2)
[2018-05-19 23:06] LABS: TOTAL BILIRUBIN 8.2 mg/dL (0.0-1.0)
[2018-05-19 23:08] LABS: ALKALINE PHOSPHATASE 199 IU/L (3-129); CREATININE 0.6 mg/dL (0.6-1.3); GFR ESTIMATE (CALCULATED) > 59 mL/min/
[2018-05-19 23:09] LABS: AST (GOT) 68 IU/L (2-34); UREA NITROGEN (BUN) 8 mg/dL (9-23)
[2018-05-19 23:11] LABS: ALT (GPT) 20 IU/L (3-49)
[2018-05-19 23:16] LABS: QUANTITATIVE HCG < 4.0 MIU/ML
[2018-05-20 07:12] LABS: HEMATOCRIT 21.6 % (36.0-46.0); HEMOGLOBIN 7.5 G/DL (11.9-15.5); MCH 33.2 PG (29.0-34.0); MCHC 34.7 G/DL (30.0-36.0); RBC DIS.WIDTH-CV 22.2 % (11.8-14.6); RBC DIS.WIDTH-SD 73.4 % (39-53); RED BLOOD COUNT 2.26 M/uL (3.80-5.20); WHITE BLOOD COUNT 10.5 K/uL (4.1-10.2)
[2018-05-20 07:16] LABS: MCV 95.6 FL (83-99); PLATELET COUNT 156 K/uL (156-360)
[2018-05-20 07:58] VITALS: BP 118/72
[2018-05-20 11:18] LABS: C DIFF TOXIN NEGATIVE (NEGATIVE)
[2018-05-20 12:10] VITALS: BP 99/62
[2018-05-20] MEDS ORDERED: BUSPAR10 MG PO (12:54)
[2018-05-20] MEDS ORDERED: QUETIAPINE FUM300 MG PO (12:54)
[2018-05-20] MEDS ORDERED: QUETIAPINE FUMA50 MG PO (12:56)
[2018-05-20 13:28] LABS: INTER. NORMALIZED RATIO 2.5
[2018-05-20 13:31] LABS: PTT 40.3 SEC (25-37)
[2018-05-20 14:04] LABS: TYPE OF FLUID PARACENTESIS
[2018-05-20 14:32] LABS: APPEARANCE CLOUDY; BODY FLUID RBC'S < 1000 /MM^3 (0-100); BODY FLUID WBC'S 55 /MM^3 (0-500)
[2018-05-20 15:07] LABS: BODY FLUID EOSINOPHILS 0 % (0-25); MONONUCLEAR WBC'S 92 %; POLYNUCLEAR WBC'S 8 % (0-25)
[2018-05-20 16:01] VITALS: BP 112/71
[2018-05-20 19:22] LABS: ABS NEUTROPHIL COUNT 8.9; ANISOCYTOSIS 3+; EOSINOPHIL ABS CT 0.2; EOSINOPHILS 1.7 % (0-5.0); HYPOCHROMASIA 2+; LYMPHOCYTES 12.2 % (15.0-45.0); MACROCYTES 3+; MONOCYTES 0.9 % (0-9.0); NUCLEATED RBC'S 0.9; PLAT.SUFFICIENCY DECREASED; POIKILOCYTOSIS 3+; SCHISTOCYTES 1+; SEG.NEUTROPHILS 85.2 % (46.0-76.0); TARGET CELLS 1+
[2018-05-20 20:06] VITALS: BP 107/64
[2018-05-21 00:23] VITALS: BP 119/72
[2018-05-21 05:01] LABS: HEMATOCRIT 21.7 % (36.0-46.0); HEMOGLOBIN 7.5 G/DL (11.9-15.5); MCH 33.2 PG (29.0-34.0); MCHC 34.6 G/DL (30.0-36.0); PLATELET COUNT 163 K/uL (156-360); RBC DIS.WIDTH-CV 22.7 % (11.8-14.6); RBC DIS.WIDTH-SD 75.1 % (39-53); RED BLOOD COUNT 2.26 M/uL (3.80-5.20); WHITE BLOOD COUNT 11.9 K/uL (4.1-10.2)
[2018-05-21 05:07] LABS: INTER. NORMALIZED RATIO 2.8
[2018-05-21 05:10] LABS: ALBUMIN 2.5 g/dL (3.2-4.8); CHLORIDE 106 mEq/L (99-109); POTASSIUM 3.6 mEq/L (3.7-5.4); SODIUM 135 mEq/L (136-147)
[2018-05-21 05:16] LABS: ALKALINE PHOSPHATASE 168 IU/L (3-129); CREATININE 0.6 mg/dL (0.6-1.3); GFR ESTIMATE (CALCULATED) > 59 mL/min/
[2018-05-21 05:17] LABS: UREA NITROGEN (BUN) 7 mg/dL (9-23)
[2018-05-21 05:18] LABS: AST (GOT) 67 IU/L (2-34); DIRECT BILIRUBIN 7.9 mg/dL (0.0-0.3)
[2018-05-21 05:19] LABS: ALT (GPT) 16 IU/L (3-49)
[2018-05-21 05:23] LABS: GLUCOSE 88 mg/dL (70-99); TOTAL BILIRUBIN 10.8 mg/dL (0.0-1.0)
[2018-05-21 07:34] VITALS: BP 107/66
[2018-05-21] MEDS ORDERED: XIFAXAN550 MG PO (10:35)
[2018-05-21 11:16] VITALS: BP 105/59
[2018-05-21 16:15] VITALS: BP 114/68
[2018-05-21 16:15] LABS: APPEARANCE CLEAR ((CLEAR)); BILIRUBIN SMALL; BLOOD NEGATIVE; GLUCOSE (STRIP) NEGATIVE; KETONES NEGATIVE; LEUKOCYTES NEGATIVE; NITRITE NEGATIVE; PROTEIN (STRIP) NEGATIVE; SPECIFIC GRAVITY 1.013 (1.000-1.030); UCUL ADDED? NO
[2018-05-21 16:16] LABS: COLOR DK YELLOW ((YELLOW))
[2018-05-21 20:19] VITALS: BP 111/59
[2018-05-21 23:31] VITALS: BP 103/56
[2018-05-22 03:45] VITALS: BP 99/57
[2018-05-22 05:58] LABS: HEMATOCRIT 21.7 % (36.0-46.0); HEMOGLOBIN 7.5 G/DL (11.9-15.5); MCH 33.9 PG (29.0-34.0); MCHC 34.6 G/DL (30.0-36.0); MCV 98.2 FL (83-99); PLATELET COUNT 146 K/uL (156-360); RBC DIS.WIDTH-CV 23.5 % (11.8-14.6); RBC DIS.WIDTH-SD 79.8 % (39-53); RED BLOOD COUNT 2.21 M/uL (3.80-5.20); WHITE BLOOD COUNT 13.2 K/uL (4.1-10.2)
[2018-05-22 06:15] LABS: CHLORIDE 106 MEQ/L (99-109); CREATININE 0.5 MG/DL (0.6-1.3); GFR ESTIMATE (CALCULATED) > 59 mL/min/; GLUCOSE 85 mg/dL (70-99); POTASSIUM 4.2 MEQ/L (3.7-5.4); SODIUM 138 MEQ/L (136-147); UREA NITROGEN (BUN) 9 mg/dL (9-23)
[2018-05-22 07:55] VITALS: BP 110/87
[2018-05-22 09:51] LABS: ALBUMIN 2.3 G/DL (3.2-4.8); ALKALINE PHOSPHATASE 151 IU/L (3-129); ALT (GPT) 14 IU/L (3-49); AST (GOT) 72 IU/L (2-34); TOTAL PROTEIN 5.8 G/DL (6.4-8.3)
[2018-05-22 11:55] VITALS: BP 118/87
[2018-05-22 15:35] VITALS: BP 131/87
[2018-05-22] MEDS ORDERED: XIFAXAN550 MG PO (16:12)
[2018-05-22 20:00] VITALS: BP 99/60
[2018-05-23 00:10] VITALS: BP 103/57
[2018-05-23 04:01] VITALS: BP 98/56
[2018-05-23 07:11] LABS: INTER. NORMALIZED RATIO 3.8
[2018-05-23 07:12] LABS: BASOPHIL (%) 0.4 % (0-1); EOSINOPHIL (%) 0.6 % (0-5); EOSINOPHIL COUNT 0.1 K/uL (0-0.3); HEMATOCRIT 19.2 % (36.0-46.0); HEMOGLOBIN 6.9 G/DL (11.9-15.5); IMMATURE GRANULOCYTE (%) 0.4 % (0.0-0.7); LYMPHOCYTE (%) 13.5 % (15-42); LYMPHOCYTE COUNT 1.3 K/uL (1.0-2.8); MCH 34.7 PG (29.0-34.0); MCHC 35.9 G/DL (30.0-36.0); MCV 96.5 FL (83-99); MONOCYTE (%) 6.8 % (3-12); MONOCYTE COUNT 0.6 K/uL (0-0.8); NEUTROPHIL (%) 78.3 % (45-76); NEUTROPHIL COUNT 7.3 K/uL (1.8-6.4); RBC DIS.WIDTH-CV 22.9 % (11.8-14.6); RBC DIS.WIDTH-SD 76.9 % (39-53); RED BLOOD COUNT 1.99 M/uL (3.80-5.20); WHITE BLOOD COUNT 9.4 K/uL (4.1-10.2)
[2018-05-23 07:32] LABS: PLAT.SUFFICIENCY DECREASED
[2018-05-23 07:34] LABS: PLATELET COUNT 102 K/uL (156-360)
[2018-05-23 08:16] LABS: ALBUMIN 2.1 G/DL (3.2-4.8); ALKALINE PHOSPHATASE 138 IU/L (3-129); ALT (GPT) 11 IU/L (3-49); AST (GOT) 46 IU/L (2-34); CHLORIDE 106 MEQ/L (99-109); CREATININE 0.6 MG/DL (0.6-1.3); GFR ESTIMATE (CALCULATED) > 59 mL/min/; GLUCOSE 83 mg/dL (70-99); POTASSIUM 3.8 MEQ/L (3.7-5.4); SODIUM 134 MEQ/L (136-147); TOTAL BILIRUBIN 11.1 MG/DL (0.0-1.0); TOTAL PROTEIN 5.4 G/DL (6.4-8.3); UREA NITROGEN (BUN) 11 mg/dL (9-23)
[2018-05-23 10:12] VITALS: BP 102/52
[2018-05-23 12:17] VITALS: BP 114/66
[2018-05-23 12:41] LABS: HEPATITIS B SURFACE ANTIGEN Nonreactive
[2018-05-23 12:42] LABS: ANTI-HEPATITIS A VIRUS (IGM) Nonreactive
[2018-05-23 12:43] LABS: ANTI-HEPATITIS B CORE (IGM) Nonreactive
[2018-05-23 13:03] LABS: HEPATITIS C ANTIBODY REACTIVE
[2018-05-23 16:15] VITALS: BP 109/62
[2018-05-23] MEDS ORDERED: FUROSEMIDE20 MG PO (17:15)
[2018-05-23] MEDS ORDERED: Prelone,Orapred PO (17:15)
[2018-05-23] MEDS ORDERED: SPIRONOLACTONE25 MG PO (17:15)
[2018-05-23 20:05] VITALS: BP 101/61
== END 2018-05-23 20:50 | disposition short-term general hospital (02) | DRG 386 ==
LOC: EME 22:09 → EDOF 05-20 06:19 → 4SOUTH 05-20 07:51
PROVIDERS: Hospitalist; Internal Medicine; Internal Medicine Gastroenterology; Physician Assistant; Physician Assistant Medical
PROC: 0W9G30Z Drainage of Peritoneal Cavity with Drainage Device, Percutaneous Approach (ICD-10-PCS; principal; 2018-05-20)
DX: K51.00 Ulcerative (chronic) pancolitis without complications (principal); D61.818 Other pancytopenia; E87.1 Hypo-osmolality and hyponatremia; K76.6 Portal hypertension; K70.11 Alcoholic hepatitis with ascites; K70.31 Alcoholic cirrhosis of liver with ascites; K72.90 Hepatic failure, unspecified without coma; E87.6 Hypokalemia; B18.2 Chronic viral hepatitis C; F10.20 Alcohol dependence, uncomplicated; F32.9 Major depressive disorder, single episode, unspecified; F41.9 Anxiety disorder, unspecified; F17.200 Nicotine dependence, unspecified, uncomplicated; Z86.19 Personal history of other infectious and parasitic diseases; Z86.73 Personal history of transient ischemic attack (TIA), and cerebral infarction without residual deficits
CPT/HCPCS: 49083; 74177; 80048; 80053; 80074; 80076; 81003; 82140; 82248; 82948; 83605; 83615; 84702; 85007; 85025; 85027; 85610; 85730; 86850; 86900; 86901; 86920; 87040; 87070; 87075; 87205; 87493; 87506; 88108; 89051; 93005; 99281; 99284; G0378; J1956; J2270; J2405; J3430; J7030; P9047; S0028; S0030